=== PATIENT | male | born 1975 | race Caucasian/White ===

== ENCOUNTER 2016-08-25 09:25 | Day surgery (SDC) | payer OTHER ==
[~2016-08-25] VITALS: Ht 170.2 cm; Wt 77.7 kg
--- NOTE | 2016-08-25 07:33 | PCM.HPANE ---
Patient Data Surgeon Admitting Provider: Attending Provider:Ignacio Sheldon MD Primary Care Physician:Ayden Farris MD Other Provider:Erica [place]ham Anesthesia Reason for Visit Diarrhea Ht/WT & BMI Body Mass Index Allergies Coded Allergies: Bumble Bee (Verified Allergy, Unknown, 08/25/16) Corticosteroids (Glucocorticoids) (Verified Allergy, Unknown, 08/25/16) IN injection form caused hand to blister hydrocodone (Verified Allergy, Unknown, 08/25/16) Past Anesthesia History Anesthesia History: Denies:: Anesthesia Reactions MRSA MRSA: No Medications Reported Medications Miconazole Nitrate (Lotrimin AF)150 Gm [id number] Gm TP BID 08/24/16 Aspirin 81 Mg Fyuepy88 Mg PO DAILY Ref 0 04/27/16 Hydrocodone-Acetaminophen 5-325 mg 1 Each Tablet1 Tab PO q6 hours PRN For Pain # 12 04/27/16 Cyclobenzaprine 10 Mg Imwszx90 Mg PO TID PRN For Pain #60 04/27/16 Naproxen 500 Mg Pzo045 Mg PO BID PRN For Pain #60 04/27/16 Discontinued Reported Medications Ibuprofen 400 Mg Qecmii864 Mg PO QID PRN For Pain Ref 0 08/24/16 Docusate Sodium (Colace)100 Mg Jryliqp881 Mg PO BID PRN For Constipation Ref 0 04/27/16 Discontinued Scripts oxyCODONE 5 Mg Tablet5 Mg PO Q4H PRN For Moderate Pain #30 TABLET Prov:Armando Mota MD 04/28/16 Amoxicillin/Clav K 875-125 mg 875 Mg Tab1 Tab PO BID #14 TAB Prov:Armando Moat MD 04/28/16 History History of ENT Problems?: No Hx of Heart Problems?: No Hx of Respiratory Problem?: No Respiratory History: Denies:: Asthma Hx Neurologic Problems?: No Hx of GI Problems?: No Hx of Problems?: No Male Hx: Denies:: Prostate Problems Scrotal Mass Testicular Surgery Hx Musculoskeletal Problems?: Yes Musculoskeletal History: Positive for:: Back Injury (L5 and S1 r/t fall) Denies:: Joint Replacement Musculoskeletal Trauma Hx of Psycho/Social Problems?: Yes Psycho Social History: Positive for:: Anxiety ("pain induced anxiety") Denies:: Bipolar Disorder Hx Depression Suicide Attempt Hx Surgeries?: No Hx Any Other Health Problems?: No Other History: Denies:: Hospitalization History Blood Transfusions: Denies:: Blood Transfuse Reaction Blood Transfusions Hx Alcohol Use: YesHx Substance Use: Yes (marijuana) Smoking Status: Current Every Day Smoker Have You Smoked inLast 12 mo: Yes Stop/Bang CHARITY Risk Assessment: Low Risk, <3 Yes Risk Assessment Category Category 1A: Patient has history of documented sleep apnea, and HAS NOT received any narcotic, sedative or anesthesia administration during this stay. Category 1B: Patient has history of documented sleep apnea, and HAS received any narcotic , sedative or anesthesia administration during this stay Category 2: Patient has SUSPECTED Obstructive Sleep Apnea, and HAS received any narcotic , sedative or anesthesia administration during this stay. Category 3: Patient has SUSPECTED Obstructive Sleep Apnea and HAS NOT received narcotic, sedative or anesthesia administration during this stay. Category 4: Outpatient in Procedural Areas with known sleep apnea or who screen positive for High Risk via the STOP/BANG questionnaire. Plan Impression Patient chart reviewed, patient interviewed and anesthestic plan with risks, benefits, and alternatives discussed, and informed consent obtained. ASA Physical Status: ASA2 Mod Systemic Disease Anesthetic Plan: MAC Bene/Risks/Altern/Consents: Yes HP Complete Prior to Induction: Yes Lida Foreman MD Aug 25, 2016 07:32
[~2016-08-25 09:25] MED LIST: ASPI-973 PO; CYCL10TA9 PO; HYDR-4003 PO; IBUP400T22 PO; MICO150A TP; NPR500T PO
[2016-08-25] MEDS ORDERED: Propofol 10,000 mCg/mL 20 mL Inj ONE (09:26)
[2016-08-25] MEDS ORDERED: fentaNYL-PF 50 mCg/mL 2 mL Inj ONE (09:26)
[2016-08-25 09:36] VITALS: BP 130/86; PULSE 57; RESP 16; O2SAT 100
[2016-08-25] MEDS: Lactated Ringer's 1,000 ML IV SCH ×2 (10:06→10:13)
--- NOTE | 2016-08-25 10:15 | PCM.ANEP1 ---
Post Anesthesia Phase 1 PACU Phase 1 Assessment Vital Signs Vital Signs Date Time Temp Pulse Resp B/P Pulse Ox O2 Delivery O2 Flow Rate FiO2 08/25/16 09:36 36.7 57 16 130/86 100 Room Air Anesthetic Administered: MAC Level of Alertness: Awake, talking BORJA's with Equal Strength: Yes Pain: No Oxygen Delivery: Nasal Cannula Lida Foreman MD Aug 25, 2016 10:15
[2016-08-25] MEDS ORDERED: Lactated Ringer's 1,000 ML IV SCH (10:16)
--- NOTE | 2016-08-25 10:16 | PCM.ANEP2 ---
Post Anesthesia Evaluation ASA/CMS Post Anesthesia VS in Patient's Normal Range?: Yes Resp Stable; Airway Patent?: Yes CV Function & Hydration Stable: Yes Mental Status Recovered?: Yes Pain control Satisfactory?: Yes N/V Control Satisfactory?: Yes Lida Foreman MD Aug 25, 2016 10:16
[2016-08-25 10:20] VITALS: BP 112/77; PULSE 56; RESP 16; O2SAT 95
[2016-08-25] MEDS ORDERED: MetoCLOpramide 5 mg/mL 2 mL Inj IVPUSH PRN (10:20)
[2016-08-25] MEDS ORDERED: Ondansetron 2 mg/mL 2 mL Inj IVPUSH PRN (10:20)
[2016-08-25 10:29] VITALS: BP 116/79; PULSE 52; RESP 15; O2SAT 99
[2016-08-25 10:39] VITALS: BP 128/84; PULSE 59; RESP 15; O2SAT 99
--- NOTE | 2016-08-25 10:44 | ENDO ---
[address] [address] ENDOSCOPY PROCEDURE PATIENT: BECCA MELÉNDEZ : 1975 MR#: [id number] ADMIT: 08/25/2016 JOB ID: [id number] DATE OF SERVICE: 08/25/2016 TYPE OF OPERATION: Colonoscopy with biopsy. PREOPERATIVE DIAGNOSIS(ES): Diarrhea. POSTOPERATIVE DIAGNOSIS(ES): 1. Diverticulum seen in the ascending colon, status post biopsy. 2. Otherwise normal colonoscopy, status post biopsy of gastrointestinal random colon. ANESTHESIA: Monitored anesthesia care. COMPLICATIONS: None. BLOOD LOSS: Minimal. DESCRIPTION OF PROCEDURE: After risks and benefits explained to the patient, informed consent was obtained. After anesthesia administered, colonoscope was then inserted from the rectum to the terminal ileum and mucosa carefully examined. Prep of the patient was fair. After the procedure was done, the scope withdrawn and procedure terminated. FINDINGS: Upon inspection of the anus, no masses, hemorrhoids, ulcers, or fissures that were seen. Throughout the entire examination, there was one diverticulum seen in the ascending colon. Otherwise, colonoscopy was normal without polyps, masses, or lesions. Biopsies taken of terminal ileum and random colon. Retroflexion was normal. IMPRESSIONS: 1. Diverticulum in ascending colon. 2. Otherwise normal colonoscopy, status post biopsy. RECOMMENDATIONS: Await pathology results. Follow up in GI clinic as needed.
--- NOTE | 2016-08-26 16:28 | PATH ---
SURGICAL PATHOLOGY Attending Physician:Ignacio Sheldon MD CASE STATUS: Signed Out PATIENT NAME: BECCA MELÉNDEZ PID: [id number] : 1975 DATE COLLECTED:08/25/2016 16:16 SPECIMEN: 1: Small Intestine/Bowel, Biopsy 2: Colon, Biopsy CLINICAL HISTORY: A: T I BIOPSY B: RANDOM COLON BIOPSY FINAL DIAGNOSIS: 1.TERMINAL ILEUM BIOPSY: SMALL BOWEL MUCOSA WITH NO DIAGNOSTIC ABNORMALITY. NEGATIVE FOR ACTIVE INFLAMMATION, DYSPLASIA AND MALIGNANCY. 2.RANDOM COLON, BIOPSIES: COLONIC MUCOSA WITH NO SIGNIFICANT DIAGNOSTIC ABNORMALITY. NEGATIVE FOR ACTIVE, CHRONIC AND MICROSCOPIC COLITIS. NEGATIVE FOR DYSPLASIA AND MALIGNANCY. ICD10 CODE R10.9 GROSS DESCRIPTION: The specimen is received in two formalin filled containers labeled with the patient's name. 1). The specimen is sublabeled "TI" and consists of 2 portions of tissue which aggregate to 0.3 x 0.3 x 0.2 CM. The specimen is entirely submitted in cassette 1A. 2). The specimen is sublabeled "random colon" and consists of multiple portions of tissue which aggregate to 0.7 x 0.6 x 0.3 CM. The specimen is entirely submitted in cassette 2A. 08/25/2016 [facility] MICRO DESCRIPTION: See diagnosis. ICD-9 CODES: CPT CODES: 1: 83853 2: 41101 Electronically Signed Out Kassandra Engel MD [facility] Pathology [facility] [address], [place] [address] Technical component performed at [facility], [facility] [address], [place], [address]
== END 2016-08-25 23:59 | disposition home or self-care (01) ==
LOC: END 09:25
PROVIDERS: ATTEND Internal Medicine Gastroenterology
DX: R19.7 Diarrhea, unspecified (principal); K57.30 Diverticulosis of large intestine without perforation or abscess without bleeding; F17.210 Nicotine dependence, cigarettes, uncomplicated
CPT/HCPCS: 45380; 88305; J2250; J3010; J7120